=== PATIENT | female | born 1955 | race Caucasian/White ===

== ENCOUNTER 2025-06-10 06:07 | Day surgery (SDC) | payer OTHER ==
[2025-06-08 12:52] LABS: Absolute Lymphocytes (CBC) 1.9 K/uL (0.7-4.9); Hematocrit 42.2 % (36.0-45.0); Hemoglobin 14.3 g/dL (12.0-15.0); MCH 31.6 pg (27.0-35.0); MCHC 33.9 g/dL (32.0-36.0); MCV 93.3 fL (80-100); MPV 7.6 fL (7.6-11.3); Nucleated RBC Absolute Count 0.0 (0-0); Nucleated Red Blood Cells % 0.0 % (0-0); RBC Red Blood Cell Count 4.52 M/uL (3.86-4.86); White Blood Count 6.30 thou/uL (4.3-10.9)
[2025-06-08 13:08] LABS: Anion Gap 7.3 mEq/L (5.0-15.0); BUN Blood Urea Nitrogen 10.0 mg/dL (7-18); Glucose Level 93.0 mg/dL (74-106); Potassium 4.3 mEq/L (3.5-5.1)
[2025-06-10] MEDS ORDERED: BSS OPTHALMIC SOL 15 ML OPTH ONE (07:15)
[2025-06-10] MEDS ORDERED: POVIDONE-IODINE 5% EYE DROPS ONE (07:16)
[2025-06-10] MEDS ORDERED: FENTANYL CITR 100 MCG/2 ML ONE (07:18)
[2025-06-10] MEDS ORDERED: LIDOCAINE 2% MPF 5 ML VIAL ONE (07:18)
[2025-06-10] MEDS ORDERED: ONDANSETRON 4 MG/2 ML VIAL ONE (07:18)
[2025-06-10] MEDS ORDERED: MIDAZOLAM HCL 2 MG/2 ML INJ ONE ×2 (07:38→08:30)
[2025-06-10] MEDS: LIDOCAINE HCL/EPINEPHRINE 20 ML MDV ONE (07:55)
--- NOTE | 2025-06-10 09:19 | P.OP ---
Topographical Drafter: NONE,NONE Preoperative diagnosis: Neoplasm of uncertain behavior, right cheek Postoperative diagnosis: Basal cell carcinoma, right cheek Primary procedure: Excision malignant skin lesion, right cheek 3 cm Secondary procedure: Intermediate closure, right face 5 cm Anesthesia: Local with light sedation Estimated blood loss: Less than 5 mL Specimen: Right nasolabial fold and UB, suture bruner 12:00, frozen Findings: Negative margins on frozen section, basal cell carcinoma Operative Technique: Patient was brought to the operating room and given some light sedation due to recent use of GLP-1 medications. The face was examined and the right nasolabial fold had scattered irregular lesions consistent with clinical basal cell carcinoma with associated firm subcutaneous nodule measuring approximately 1 x 2 cm. A right infraorbital block was performed using 1% lidocaine with epinephrine. The skin surrounding the clinically apparent lesion was also injected with additional local anesthetic. A total of 5.5 mL were used. The face was then prepped with Betadine and draped in a sterile fashion. Due to to the nature of the procedure, no supplemental oxygen was administered in order to reduce fire risk. A surgical marker was used to shaniqua the clinically apparent lesion including a 2 mm margin. A fusiform incision parallel to the nasolabial fold was designed and cut using 15 blade scalpel. A suture was placed at the superiormost aspect of the lesion for orientation. The Bovie electrocautery was used to incise through the subcutaneous tissues. The skin edges were retracted with double hooks to provide tension. Care was taken to leave a margin of fat around the firm subcutaneous nodule. Superiorly aspects of the zygomaticus and apiculate iris andrzej muscles were encountered and divided as they were adjacent to the clinically concerning mass. Once the lesion was completely removed and was sent to pathology for frozen section analysis, the wound bed was inspected and scant bleeding was controlled with Bovie electrocautery. The defect measured about 3- 1/2 x 2-1/2 cm. Due to the size of the defect intermediate closure was required. The deep skin edges and subcutaneous tissues were closed using 4-0 Vicryl interrupted sutures. The skin was then closed in a running fashion using 4-0 nylon suture. The total length of the closure was approximately 5 cm with the incision laying directly within the nasolabial fold to improve postoperative cosmesis after healing. Frozen section analysis confirmed basal cell carcinoma with some possible variation and combination of additional benign tumor. The peripheral and deep edges were negative. In some regions the deep edges of the tumor were close, within 1 to 2 mm but were not directly involving the tumor. There was a thin layer of fatty tissue noted on visualized portions during frozen section analysis and intraoperative consultation with the pathologist. Given the results, no additional excision was immediately indicated and the procedure was concluded. The surgical area was cleaned and antibiotic ointment was applied to the incision. The patient was then transported back to day surgery. Disposition: The patient will follow-up in 7 to 10 days for suture removal and evaluation of wound healing. Detailed wound care instructions are discussed with the patient and written instructions will be sent home with the patient. Complications: None Implants: None Fluids & blood products: See anesthesia record Transferred to: Recovery Room Condition: Good
[2025-06-10 10:16] VITALS: BP 119/69; TEMP 97; O2SAT 99
== END 2025-06-10 10:00 | disposition home or self-care (01) ==
LOC: OR 06:07
PROVIDERS: ATTEND Otolaryngology
PROC: 0HB1XZZ Excision of Face Skin, External Approach (ICD-10-PCS; principal; 2025-06-10 07:45)
DX: C44.319 Basal cell carcinoma of skin of other parts of face (principal)
CPT/HCPCS: 85025; 80048; 36415; 88331; 88332; 88305; 11643; J2250 ×2; J3010; J2405; J2003; J2704